=== PATIENT | female | born 1965 | race Caucasian/White ===

== ENCOUNTER → 2023-10-22 07:59 | Outpatient (REF) | payer OTHER, SELFPAY | LOC: WDC 07:59 | PROVIDERS: ATTENDING PHYSICIAN Surgery; FAMILY PHYSICIAN Internal Medicine | DX: R92.8 Other abnormal and inconclusive findings on diagnostic imaging of breast (principal) | CPT/HCPCS: 76642 ==

== ENCOUNTER → 2023-11-25 08:03 | Outpatient (REF) | payer OTHER, SELFPAY | LOC: WDC 08:03 | PROVIDERS: ATTENDING PHYSICIAN Surgery; FAMILY PHYSICIAN Family Medicine | DX: Z12.31 Encounter for screening mammogram for malignant neoplasm of breast (principal) | CPT/HCPCS: 77063; 77067 ==

== ENCOUNTER 2024-02-12 19:48 | Inpatient (IN) | payer OTHER, SELFPAY ==
[2024-02-12 13:07] VITALS: BP 128/81
[2024-02-12 13:22] LABS: % Basophils 0.4 % (0-2); % Eosinophils 0.4 % (0-6); % Immature Granulocytes 0.2 % (0-0.5); % Lymphocytes 15.4 % (20.5-51.1); % Monocytes 6.3 % (1.7-9.3); % Neutrophils 77.3 % (42.2-75.2); Absolute Basophils 0.1 10^3/uL (0-0.2); Absolute Eosinophils 0.1 10^3/uL (0-0.7); Absolute Lymphocytes 1.9 10^3/uL (1.2-3.4); Absolute Monocytes 0.8 10^3/uL (0.1-0.6); Absolute Neutrophils 9.3 10^3/uL (1.4-6.5); Hematocrit 37.2 % (37.0-47.0); Hemoglobin 12.7 g/dL (12.0-16.0); Mean Corp Hgb Conc. 34.1 g/dL (33.0-37.0); Mean Corpuscular Hgb 30.5 pg (27.0-31.0); Mean Corpuscular Volume 89.4 fL (81.0-99.0); Mean Platelet Volume 9.7 fL (7.4-10.4); Nucleated Red Blood Cells % 0 %; Platelet Count 225 10^3/uL (130-400); Red Blood Cell Count 4.16 10^6/uL (4.20-5.40); Red Cell Dist. Width 12.6 % (11.5-14.5)
[2024-02-12 13:41] LABS: ALT (SGPT) 36 U/L (0-35); AST (SGOT) 34 U/L (14-36); Albumin 4.2 g/dl (3.5-5.0); Alkaline Phosphatase 72 U/L (38-126); Blood Urea Nitrogen 12 mg/dl (7-17); Calcium 9.5 mg/dl (8.4-10.2); Carbon Dioxide 27 mmol/L (22-30); Chloride 102 mmol/L (98-107); Glucose 95 mg/dl (70-99); Lipase 69 U/L (23-300); Potassium 4.1 mmol/L (3.5-5.1); Sodium 135 mmol/L (135-145); Total Bilirubin 0.9 mg/dl (0.2-1.3); eGFR > 60.00
--- NOTE | 2024-02-12 15:34 | ED.GENMED ---
History of Present Illness
General
Chief Complaint: Abdominal Pain
Source: patient
Exam Limitations: none
Time Seen by Provider: 02/12/24 15:14
Nursing documentation reviewed up to this point in time: agreed with
History of Present Illness
History of Present Illness:
Patient is a 58 year old female presenting with 3 days of lower abdominal pain. Patient states pain initially started on Friday afternoon and is mostly located in the left lower quadrant of her abdomen. She has some pain just inferior to her
umbilicus. She does report a low-grade temp of 100.1 a few nights ago and mild nausea. She has also had a few episodes of diarrhea. Patient denies any vomiting or constipation. Patient denies any chest pain, shortness of breath. No urinary
symptoms.
Patient does believe that she has a history of possible diverticulitis. Although she does not believe she has ever had diagnostic CT imaging performed.
No history of abdominal surgeries.
Past History
Past History
ED Past Medical History: None
ED Past Surgical History: None
Social History
Tobacco: Non-smoker
Personal:
Living: with family
Employment: Not employed
Review of Systems
Review of Systems
Allergies reviewed?: Yes
All Other Systems: ROS reviewed and negative except as documented in HPI and ROS
Phy Exam
Physical Exam
Physical Exam:
Vitals: Vital signs stable. Afebrile
General: Patient is well appearing, no acute distress. Nontoxic appearing
Skin: Warm and dry, no rashes or lesions
Head: Normocephalic, atraumatic
Eyes: Sclera nonicteric. EOMs intact. No nystagmus.
Throat: Protecting airway
Neck: Normal ROM, no cervical spine tenderness, no meningismus
Cardiac: Regular rate and rhythm, no murmurs.
Pulm: Normal respiratory effort, no wheezes, rales, rhonchi heard on exam.
Abdomen: Abdomen soft. Moderate abdominal tenderness in left lower quadrant and suprapubic region. Nondistended. No CVA tenderness
Extremities: No evidence of cyanosis or edema. Great distal pulses
Neuro: AAOx3. CN II-XII intact. No focal neurologic deficits.
Psychiatric: Normal affect.
Course
Orders/Labs/Results
Orders:
Orders
02/12/24 13:13
Complete Blood Count/With Diff Urgent
Comprehensive Metabolic Panel Urgent
Lipase Urgent
02/12/24 15:25
0.9% Sodium Chloride 1000 ml [Nss] 1,000 ml IV BOLUS
Ketorolac [Toradol] 15 mg IV NOW STA
02/12/24 15:26
CT Abd/pelvis W Iv Cont Urgent
Comment: hx diverticulitis and ovarian cysts
Reason For Exam: LLQ abdominal pain
Urinalysis Reflex To Culture Urgent
02/12/24 18:47
Piperacillin/Tazo 3.375 Gram [Zosyn] 3.375 gram in 50 ml IV NOW
Abnormal Lab Results
02/12/24
13:13
WBC 12.0 H 10^3/uL
(4.8-10.8)
RBC 4.16 L 10^6/uL
(4.20-5.40)
Absolute Neuts (auto) 9.3 H 10^3/uL
(1.4-6.5)
Absolute Monos (auto) 0.8 H 10^3/uL
(0.1-0.6)
Neutrophils % 77.3 H %
(42.2-75.2)
Lymphocytes % 15.4 L %
(20.5-51.1)
ALT 36 H U/L
(0-35)
02/12/24 13:13
02/12/24 13:13
Vital Signs
Initial and Last Documented VS:
Initial Vital Signs
Temp Pulse Resp BP Pulse Ox
98.4 F 105 16 128/81 97
02/12/24 13:07 02/12/24 13:07 02/12/24 13:07 02/12/24 13:07 02/12/24 13:07
Last Documented Vital Signs
Temp Pulse Resp BP Pulse Ox
98.4 F 105 16 128/81 97
02/12/24 13:07 02/12/24 13:07 02/12/24 13:07 02/12/24 13:07 02/12/24 13:07
MDM/Problems Addressed
Differential Diagnosis Includes:
Not limited to: Diverticulitis, colitis, appendicitis, kidney stone, UTI
MDM/Problems Addressed:
58-year-old female presenting with 3 days of left lower quadrant abdominal pain with mild associated nausea and diarrhea. Low-grade fevers at home. Possible history of prior diverticulitis although never required treatment. Patient mildly
tachycardic on arrival otherwise vital signs are stable. She is afebrile. Physical exam as above. Patient well-appearing, in no apparent distress. Patient is nontoxic-appearing. Abdomen is soft. Moderate tenderness left lower quadrant without
rebound tenderness or guarding. Abdomen nondistended. Patient perfusing well. Labs are initiated in triage show a mild leukocytosis of 12. Otherwise no clinically significant abnormalities. Patient was given a liter of fluids and [address] scan was obtained which showed acute diverticulitis with questionable developing small abscess. Findings were discussed with colorectal surgeon, Dr. Dilip Bustillo who reviewed images. Given patient is mildly tachycardic, with mild
leukocytosis, and possible developing abscess he recommended patient be admitted for IV antibiotics. Did discuss with patient who is agreeable to admission. Started patient on Zosyn. Patient admitted to hospitalist service.
Chronic conditions affecting care:
History of diverticulitis
Acute Exacerbation and/or Progression of Chronic Illness:
Acute diverticulitis
*Radiology
Radiology exam reviewed: preliminary read by ED provider and radiology read reviewed
*Pulse Oximetry
Patient hypoxic: no
*EKG
Interpreted by ED Provider?: NA
*Aircraft Worker Interpretation
Rate: Aircraft Worker- N/A
*Critical Care Note
Total Time (30-74mins, 75-104mins- exclusive of procedures): Not Applicable
Patient Management
Discussion with other providers: Hospitalist and Sales Representative Sales Manager
Escalation/DeEscalation of care consider admission/obs:
Admission for IV antibiotics, clear liquid diet
ED Attending Note
-
Portions of this chart may have been created with voice recognition software.� Occasional wrong word or��sound alike� substitutions may have occurred due to the inherent limitations of voice recognition software.
Discharge Plan
Departure
Patient Disposition: Admit
Date of Disposition: 02/12/24
Time of Disposition: 18:47
Presentation/result/management discussed w/ accepting MD/DO: Hospitalist
Discharge Problem:
Acute diverticulitis
Prescriptions:
No Action
multivitamin [Multi-Day] 1 EACH tablet
1 ea PO DAILY
prednisone 10 MG tablet
10 mg PO DAILY Qty: 6 0RF
albuterol sulfate 1 PUFF HFA aerosol inhaler
1 puff inhalation R Q4HPRN PRN (Reason: cough, sob) Qty: 1 0RF
amoxicillin-pot clavulanate 1 TABLET tablet
1 tab PO Q12 Qty: 13 0RF
famotidine 20 MG tablet
20 mg PO BID Qty: 28 0RF
Rx Instructions:
Take 20 mg twice a day for 14 days
ascorbic acid (vitamin C) [Vitamin C] 500 MG tablet
1,000 mg PO BID Qty: 56 0RF
Rx Instructions:
Take 1,000 mg twice a day for 14 days
aspirin 81 MG tablet,chewable
81 mg PO DAILY Qty: 14 0RF
Rx Instructions:
Take 81 mg daily for 14 days
zinc sulfate 220 MG capsule
220 mg PO DAILY Qty: 14 0RF
Rx Instructions:
Take 220 mg daily for 14 days
cholecalciferol (vitamin D3) 1,000 UNITS tablet
2,000 units PO DAILY Qty: 28 0RF
Rx Instructions:
Take 2,000 units daily for 14 days
melatonin 5 MG tablet
5 mg PO HS Qty: 14 0RF
Rx Instructions:
Take 5 mg daily at bedtime for 14 days
Referrals:
Donis Silveira DO [Family Provider] -
Interventions
Interventions:
*Risk Screen - Suicide Last Done: 02/12/24 13:07
*General Assessment Last Done: 02/12/24 13:07
*Neglect/Abuse Screening Last Done: 02/12/24 13:07
FV-Ybgmxy-Bbygtswavs Assessment Last Done: 02/12/24 16:34
Discharge Date and Time
Print Language: MARSHALLESE
[2024-02-12] MEDS: TORADOL 15 MG IV (15:38)
[2024-02-12] MEDS: NSS 1000 IV ×2 (15:44→21:20)
[2024-02-12] MEDS: ZOSYN 50 IV (19:10)
[2024-02-12 19:15] VITALS: BP 121/85
--- NOTE | 2024-02-12 19:37 | HPS.HSE ---
Addendum entered and electronically signed by Caleb Rodarte MD 02/12/24 19:40:
Colorectal consulted.
Original Note:
Family Physician
-
Family Physician: Donis Silveira
Chief Complaint
-
abdominal pain
History of Present Illness
58-year-old female no past medical history presenting with 3 days of lower abdominal pain. Pain is located the left lower quadrant. She had low-grade temperature 100.1 few nights ago and mild nausea. Also a few episodes of loose stools. Denies
any vomiting or constipation. Denies any chest pain shortness of breath. She does have lower abdominal pressure when she urinates.
Denies smoking. Drinks alcohol occasionally.
Medical History
Past Medical History
Past Medical History: Reports None
Past Surgical History: Reports None
Social History
Tobacco: Non-smoker
Alcohol: Occasional
Drug: None
Family History
Family History: Not pertinent
Allergies / Home Medications
Allergies reflects when Allergies were last updated in [email or web address].
Home Medications with original date entered in [email or web address]
Allergy/Medication List:
Allergies
Allergy/AdvReac Type Severity Reaction Status Date / Time
NKA - No Known Allergies Allergy Unknown Uncoded 02/12/24 13:07
Home Medications
fluticasone propionate 50 mcg/actuation nasal spray,suspension 1 spray intranasal BID 02/12/24
magnesium glycinate 100 mg (as glycinate) tablet 100 mg PO HS 02/12/24
therapeutic multivitamin 1 tab PO DAILY 02/12/24
Review of Systems
-
History Source: Patient
A 12 point ROS was completed and negative except as noted: Yes
Constitutional: Reports No Symptoms
EENT: Reports No Symptoms
Respiratory: Reports No Symptoms
Cardiac: Reports No Symptoms
Abdomen/GI: Reports See HPI
: Reports No Symptoms
Musculoskeletal: Reports No Symptoms
Skin: Reports No Symptoms
Neurological: Reports No Symptoms
Endocrine: Reports No Symptoms
Hematologic/Lymphatic: Reports No Symptoms
Psych: Reports No Symptoms
Physical Exam
Vital Signs
Vital Signs
Temp Pulse Resp BP Pulse Ox
98.4 F 105 16 128/81 99
02/12/24 13:07 02/12/24 13:07 02/12/24 13:07 02/12/24 13:07 02/12/24 19:15
Physical Exam
General: Well Developed, Well Nourished and No Apparent Distress
HEENT: NormoCephalic, Moist mucous membranes and Atraumatic
Respiratory: Clear
Cardiac: S1/S2 and Regular Rhythm; No Murmur or Rub
GI: Soft, Non Distended, Normal Bowel Sounds and Tender (LLQ ); No Organomegaly
Rectal: Deferred by Provider
Musculoskeletal: No Clubbing, No Cyanosis and No Edema
Skin: No Rash
Neuro: Nonfocal/grossly intact
Laboratory Results
-
02/12/24 13:13
02/12/24 13:13
Laboratory Results
Total Bilirubin 0.9 mg/dl (0.2-1.3) 02/12/24 13:13
AST 34 U/L (14-36) 02/12/24 13:13
ALT 36 U/L (0-35) H 02/12/24 13:13
Alkaline Phosphatase 72 U/L (38-126) 02/12/24 13:13
Lipase 69 U/L (23-300) 02/12/24 13:13
Data Reviewed
-
Lab Data: Labs Reviewed by me
Old Records: Reviewed
Impression/Plan
-
IMPRESSION:
PLAN:
# Sepsis (leukocytosis, tachycardia ) secondary to acute diverticulitis with possible small developing abscess
-N.p.o.
-IV fluids
-Zosyn
-Check urinalysis
# Possible UTI
-Check urinalysis
-Zosyn
Full code
DVT prophylaxis�heparin
N.p.o.
[2024-02-12 20:03] LABS: Urine Albumin Trace (Neg - Trace); Urine Bilirubin Negative (Negative); Urine Character Clear (Clear); Urine Color Yellow; Urine Glucose Negative (Negative); Urine Ketone 3+ (Negative); Urine Leukocyte Trace (Negative); Urine Nitrite Negative (Negative); Urine Occult Blood 1+ (Negative); Urine Specific Gravity 1.015 (<1.030); Urine Urobilinogen 2+ (Neg - 1+)
[2024-02-12 20:13] LABS: Urine Bacteria Few (Negative); Urine Red Blood Cell 0-2 /HPF (0-2)
[2024-02-12 20:50] VITALS: BP 133/76; BMI 24.1
--- NOTE | 2024-02-12 21:00 | PTCARENOTE ---
Pt arrived to room 434-02. Pt ambulated from stretcher to bed. Pt AAOx3, VSS. Pt c/o /10 abdominal pain in LLQ + lower middle abdomen. Pt oriented to room, call gardiner placed within reach.
[2024-02-12] MEDS: HEPARIN 5000 UNITS SC (21:19)
[2024-02-12] MEDS: MAG-TAB SR 84 MG PO (21:20)
[2024-02-12 23:04] VITALS: BP 130/69
[2024-02-13] MEDS: ZOSYN 50 IV ×4 (01:56→21:17)
[2024-02-13 07:35] VITALS: BP 138/78
--- NOTE | 2024-02-13 08:09 | CON.CRS ---
Consultation
-
Performing Provider: Dilip Bustillo MD
Reason for Consultation: Diverticulitis
Medical History
-
History of Present Illness:
Patient is a 58-year-old female with PMH of diverticulosis, possible diverticulitis (she has had episodes of left-sided abdominal pain, was never admitted or had a CT scan for these episodes) who presents for 3 days of severe lower abdominal pain.
She denies any nausea or vomiting or dysuria. She continues to have BMs, but they have become smaller and softer, no blood. She presented to the ED yesterday. Her WBC was 12.[address] was done that showed mild diverticulitis with associated
thickening of a couple loops of small bowel and with a question of a 1.5 cm abscess versus inflamed diverticulum adjacent to the bladder. Her HR was 105, afebrile and was just mildly tender. She was admitted for bowel rest and IV antibiotics. Her
last colonoscopy was in [address] Youssef, which found pandiverticulosis and a small transverse polyp that was benign.
Past Medical History
Past Medical History: None (As above)
Past Surgical History: Other (Denies)
Social History
Tobacco: Non-Smoker
Alcohol: Occasional
Drug: None
Family History
Family History: Other (Maternal grandfather with colon cancer in his 80s, nephew with diverticulosis)
Allergies / Home Medications
Allergy/AdvReac Type Severity Reaction Status Date / Time
No Known Allergies Allergy Unverified 02/12/24 20:55
�Medication �Instructions �Recorded �Confirmed �Type
fluticasone propionate 50 1 spray intranasal BID 02/12/24 02/12/24 History
mcg/actuation nasal
spray,suspension
magnesium glycinate 100 mg (as 100 mg PO HS 02/12/24 02/12/24 History
glycinate) tablet
therapeutic multivitamin 1 tab PO DAILY 02/12/24 02/12/24 History
Review of Systems
-
All other systems: Negative unless noted
A 10 point review of systems was completed, and was negative except as per HPI.
Physical Exam
Vital Signs
Temp 98.2 F 02/13/24 07:35
Pulse 85 02/13/24 07:35
Resp Rate 18 02/13/24 07:35
Blood pressure 138/78 02/13/24 07:35
SaO2 96 02/13/24 07:35
02/12/24 02/13/24 02/14/24
06:59 06:59 06:59
Actual Weight 67.812 kg
Body Mass Index (BMI) 24.1
Lab Results / Allergies
WBC 12.0 10^3/uL (4.8-10.8) H 02/12/24 13:13
Hgb 12.7 g/dL (12.0-16.0) 02/12/24 13:13
Hct 37.2 % (37.0-47.0) 02/12/24 13:13
Plt Count 225 10^3/uL (130-400) 02/12/24 13:13
Abs Immat Gran (auto) 0.0 10^3/uL (0-0.05) 02/12/24 13:13
Neutrophils % 77.3 % (42.2-75.2) H 02/12/24 13:13
Allergy/AdvReac Type Severity Reaction Status Date / Time
No Known Allergies Allergy Unverified 02/12/24 20:55
Physical Exam
General: Well Developed, Well Nourished, No Apparent Distress and Comfortable
HEENT: Normocephalic and Atraumatic
GI: Soft, Non Distended and Tender (Mildly tender to palpation in the lower abdomen, most in the suprapubic area; no rebound or guarding)
Skin: Warm and Dry
Neuro: AO x 3
Data Reviewed
-
CT Scan: Image Personally Visualized and interpreted
Old Records: Reviewed (Colonoscopy and pathology report)
Assessment / Plan
-
58-year-old female with PMH of diverticulosis, possible diverticulitis (she has had episodes of left-sided abdominal pain, was never admitted or had a CT scan for these episodes) who presents for 3 days of severe lower abdominal pain. Her WBC was
12.[address] was done that showed mild diverticulitis with associated thickening of a couple loops of small bowel and with a question of a 1.5 cm abscess versus inflamed diverticulum adjacent to the bladder. Her HR was 105, afebrile and was just
mildly tender. Last colonoscopy was in [address] Youssef, which found pandiverticulosis and a small transverse polyp that was benign.
AFVSS
Labs pending
� Sigmoid diverticulitis with question of small abscess versus inflamed diverticulum, associated with nearby enteritis
�No surgical intervention currently indicated; continue nonoperative measures
�Explained the pathophysiology of uncomplicated versus complicated diverticulitis and the treatment options, including nonoperative versus operative management; explained the risks involved with operative management in the acute setting, including
but not limited to, the need for open surgery and possible ostomy; patient understood and agreed to nonoperative measures
� Okay for clears; if tolerating, okay for low residue this afternoon
� Continue IV Zosyn; recommend Augmentin on discharge for total of 7 days of antibiotics
�Continue pain control; recommend Tylenol and Toradol to minimize narcotics
� Encourage OOB/IS
� Appreciate hospitalist
Dispo - if tolerating low residue and wbc improved, okay for discharge as early as this afternoon, possibly tomorrow; recommend follow-up with me in 2 weeks
[2024-02-13] MEDS: NSS 1000 IV ×2 (09:10→16:06)
[2024-02-13] MEDS: THERAGRAN 1 TABLET PO (09:11)
[2024-02-13] MEDS: HEPARIN 5000 UNITS SC ×2 (09:11→21:17)
[2024-02-13 10:05] LABS: % Basophils 0.6 % (0-2); % Immature Granulocytes 0.4 % (0-0.5); % Lymphocytes 21.2 % (20.5-51.1); % Monocytes 8.2 % (1.7-9.3); % Neutrophils 68.6 % (42.2-75.2); Absolute Basophils 0.1 10^3/uL (0-0.2); Absolute Eosinophils 0.1 10^3/uL (0-0.7); Absolute Lymphocytes 1.6 10^3/uL (1.2-3.4); Absolute Monocytes 0.6 10^3/uL (0.1-0.6); Absolute Neutrophils 5.3 10^3/uL (1.4-6.5); Hematocrit 36.9 % (37.0-47.0); Hemoglobin 12.6 g/dL (12.0-16.0); Mean Corp Hgb Conc. 34.1 g/dL (33.0-37.0); Mean Corpuscular Hgb 31.2 pg (27.0-31.0); Mean Corpuscular Volume 91.3 fL (81.0-99.0); Mean Platelet Volume 10.5 fL (7.4-10.4); Nucleated Red Blood Cells % 0 %; Platelet Count 191 10^3/uL (130-400); Red Blood Cell Count 4.04 10^6/uL (4.20-5.40); Red Cell Dist. Width 12.2 % (11.5-14.5); White Blood Cell Count 7.7 10^3/uL (4.8-10.8)
--- NOTE | 2024-02-13 11:34 | W.PN.HOSP.TC ---
Today's Communication/Plan
-
Monitor vital signs
see plan
Continue with diet per colorectal
Pain control
Fluids
Antibiotics
Assessment / Plan
Assessment / Plan
General: Well Developed, Well Nourished and No Apparent Distress
HEENT: NormoCephalic, Moist mucous membranes and Atraumatic
Respiratory: Clear
Cardiac: S1/S2 and Regular Rhythm; No Murmur or Rub
GI: Soft, Non Distended, Normal Bowel Sounds and Tender (LLQ )
Musculoskeletal:No Edema
Neuro: Nonfocal/grossly intact
Sepsis (leukocytosis, tachycardia ) secondary to acute diverticulitis with possible small developing abscess
now on clears; LRD when able
patient is still currently tender on exam
-IV fluids
-Zosyn
CRS following
no UTI per UA
per CT thickening of the wall of the urinary bladder may be secondary to inflamed from the sigmoid colon
hx of diverticulosis
Full code
DVT prophylaxis�heparin
Anticipated Discharge: Within 24 hours
Subjective/Interval History
-
Date of Service: February 13, 2024
has abdominal pain
Objective Data
-
Labs:
Laboratory Results
02/13/24
08:24
WBC 7.7
Hgb 12.6
Hct 36.9 L
Plt Count 191
Sodium Pending
Potassium Pending
Chloride Pending
Carbon Dioxide Pending
BUN Pending
Creatinine Pending
Glucose Pending
Calcium Pending
Total Bilirubin Pending
AST Pending
ALT Pending
Alkaline Phosphatase Pending
Vital Signs:
Vital Signs
Temp Pulse Resp BP Pulse Ox
98.2 F 85 18 138/78 96
02/13/24 07:35 02/13/24 07:35 02/13/24 07:35 02/13/24 07:35 02/13/24 07:35
--- NOTE | 2024-02-13 13:01 | CM ---
development system efficiency manager reviewed patient's chart and met with patient and patient lives with her spouse and kids in a bilevel home patient is independent with adl's and ambulation, no dme, patient drives.
Pharmacy [facility]
PCP: Dr. Silveira
Plan; Home no needs when stable.
[2024-02-13 15:40] VITALS: BP 138/74
[2024-02-13 15:53] VITALS: BP 138/74
[2024-02-13 17:22] LABS: ALT (SGPT) 29 U/L (0-35); AST (SGOT) 33 U/L (14-36); Albumin 4.1 g/dl (3.5-5.0); Alkaline Phosphatase 75 U/L (38-126); Blood Urea Nitrogen 13 mg/dl (7-17); Calcium 8.9 mg/dl (8.4-10.2); Carbon Dioxide 18 mmol/L (22-30); Chloride 106 mmol/L (98-107); Estimated Creatinine Clearance 83 ml/min; Glucose 60 mg/dl (70-99); Potassium 4.5 mmol/L (3.5-5.1); Sodium 135 mmol/L (135-145); Total Protein 7.1 g/dl (6.3-8.2); eGFR > 60.00
[2024-02-13] MEDS: MAG-TAB SR 84 MG PO (21:17)
[2024-02-13 23:00] VITALS: BP 141/81
[2024-02-14] MEDS: ZOSYN 50 IV ×2 (02:03→08:15)
[2024-02-14] MEDS: NSS 1000 IV (04:05)
[2024-02-14 06:59] LABS: % Basophils 0.6 % (0-2); % Eosinophils 4.7 % (0-6); % Immature Granulocytes 0.4 % (0-0.5); % Lymphocytes 27.6 % (20.5-51.1); % Monocytes 11.1 % (1.7-9.3); % Neutrophils 55.6 % (42.2-75.2); Absolute Eosinophils 0.2 10^3/uL (0-0.7); Absolute Lymphocytes 1.3 10^3/uL (1.2-3.4); Absolute Monocytes 0.5 10^3/uL (0.1-0.6); Absolute Neutrophils 2.7 10^3/uL (1.4-6.5); Hematocrit 34.4 % (37.0-47.0); Hemoglobin 11.9 g/dL (12.0-16.0); Mean Corp Hgb Conc. 34.6 g/dL (33.0-37.0); Mean Corpuscular Hgb 31.1 pg (27.0-31.0); Mean Corpuscular Volume 89.8 fL (81.0-99.0); Mean Platelet Volume 10.1 fL (7.4-10.4); Nucleated Red Blood Cells % 0 %; Platelet Count 193 10^3/uL (130-400); Red Blood Cell Count 3.83 10^6/uL (4.20-5.40); Red Cell Dist. Width 12.1 % (11.5-14.5); White Blood Cell Count 4.9 10^3/uL (4.8-10.8)
[2024-02-14 07:00] VITALS: BP 139/74
[2024-02-14 07:17] LABS: Blood Urea Nitrogen 11 mg/dl (7-17); Calcium 8.9 mg/dl (8.4-10.2); Carbon Dioxide 24 mmol/L (22-30); Chloride 106 mmol/L (98-107); Estimated Creatinine Clearance 83 ml/min; Glucose 77 mg/dl (70-99); Sodium 138 mmol/L (135-145); eGFR > 60.00
[2024-02-14] MEDS: HEPARIN 5000 UNITS SC (08:14)
[2024-02-14] MEDS: THERAGRAN 1 TABLET PO (08:14)
--- NOTE | 2024-02-14 11:31 | W.PN.HOSP.TC ---
Today's Communication/Plan
-
Discharge
Assessment / Plan
Assessment / Plan
Gen-AAOx3, NAD
HEENT-NC, AT, anicteric, clear oral mm
Neck-supple
CV-reg, no M, +S1/S2
Lungs-clear B/L
Abd-soft, nondistended, mild left lower quadrant tenderness, no guarding
Ext-no edema
Musculoskeletal-no cyanosis, clubbing
Skin-warm and dry
Neuro-grossly non-focal
Psych-calm, cooperative
Sepsis - secondary to acute sigmoid diverticulitis with possible small developing abscess. Clinically improving. Leukocytosis resolved. Tolerating low residue diet. Change to Augmentin and discharge today. Outpatient follow-up with PCP and
colorectal surgery.
hx of diverticulosis
Full code
Dispo -medically stable for discharge home on oral antibiotics. Outpatient follow-up. Updated at the bedside.
32 minutes spent in discharge process.
Anticipated Discharge: Today
Subjective/Interval History
-
Date of Service: February 14, 2024
Patient seen and examined. Overall feeling better. Tolerating diet. No complaints.
Objective Data
-
Labs:
Laboratory Results
02/14/24
06:05
WBC 4.9
Hgb 11.9 L
Hct 34.4 L
Plt Count 193
Sodium 138
Potassium 4.0
Chloride 106
Carbon Dioxide 24
BUN 11
Creatinine 0.7
Glucose 77
Calcium 8.9
Vital Signs:
Vital Signs
Temp Pulse Resp BP Pulse Ox
97.8 F 67 16 139/74 97
02/14/24 07:00 02/14/24 07:00 02/14/24 07:00 02/14/24 07:00 02/14/24 07:00
I&O
02/13/24 02/14/24 02/15/24
06:59 06:59 06:59
Intake Total 420 / 420
Balance 420 / 420
Review of Systems
-
History Source: Patient
All other systems: Reviewed and negative
--- NOTE | 2024-02-14 11:35 | W.DS.TRANS ---
DC Summary - Reverberatory Furnace Operator
-
Discharge Instructions:
Discharge Diagnosis/Procedures Sigmoid diverticulitis
Diet Low Residue
Additional Diets Continue low residue/low fiber diet for 7 days,
then slowly re-introduce fiber
Activity No restrictions,No strenuous activity
Driving Restrictions Ok to drive if pain controlled without narcotics
Bathing Restrictions None
Instructions:
Stand-Alone Forms:
Changes to Home Medications: No
Discharge Medications:
DC Medications w/original date entered in [employer]
fluticasone propionate 50 mcg/actuation nasal spray,suspension 1 spray intranasal BID 02/12/24
magnesium glycinate 100 mg (as glycinate) tablet 100 mg PO HS 02/12/24
therapeutic multivitamin 1 tab PO DAILY 02/12/24
amoxicillin 875 mg-potassium clavulanate 125 mg tablet 1 tab PO BID #12 tabs 02/14/24
Home Medication Changes
Pending Results: No
[2024-02-14 12:29] VITALS: BP 154/82
--- NOTE | 2024-02-14 12:42 | CM ---
Discharged to home; no needs; had transport home
--- NOTE | 2024-02-14 12:57 | W.PN.CRS1 ---
Addendum entered and electronically signed by Donis Cerda MD 02/14/24 14:50:
I saw and examined the patient.
The VICE PRESIDENT [employer]'s note was reviewed and I agree with the note.
Comment:
Seen earlier with VICE PRESIDENT [employer].
Minimal pain. Tolerated diet. Having loose BMs.
Vitals and labs ok.
Abdomen minimally tender.
Ok with discharge from surgical perspective.
Original Note:
Today's Communication / Plan
-
dispo planning
Assessment/Plan
-
58 yo female presenting with diverticulitis with interim improvement on IV ABX. Diet able to be advanced and well tolerated
--C/W PO abx upon d/c
--LRD for the next 2 weeks until resolution of acute infection
--OP follow up with CRS discussed
Ok for discharge from surgical standpoint
Subjective Data
Subjective Data
Date of Service: February 14, 2024
Late entry: patient seen and examined at bedside with Dr. Cerda at approximately 1015. She denies pain. Tolerating diet. OOB to chair. Denies n/v. Tolerating diet thus far. Passing some loose stools/flatus.
Objective Data
-
Vital Signs
Temp Pulse Resp BP Pulse Ox
98.6 F 76 16 154/82 98
02/14/24 12:29 02/14/24 12:29 02/14/24 12:29 02/14/24 12:29 02/14/24 12:29
Intake & Output
02/13/24 02/14/24 02/15/24
06:59 06:59 06:59
Intake Total 420 / 420
Balance 420 / 420
Intake:
Oral fluids 420 / 420
Other:
Number of approximated MODERATE 2 1
amounts of urine
Lab Results
02/14/24 06:05
02/14/24 06:05
Physical Exam
-
General: No Acute Distress
Abdomen: Soft, Non Distended and Tender (mild tenderness to LLQ/suprapubic area)
== END 2024-02-14 12:40 | disposition home or self-care (01) | DRG 872 ==
LOC: 4 WEST ACU 19:48
PROVIDERS: Internal Medicine; Physician Assistant; ADMITTING PHYSICIAN Hospitalist; ATTENDING PHYSICIAN Hospitalist; CONSULT PHYSICIAN Surgery; EMERGENCY PHYSICIAN Student in an Organized Health Care Education/Training Program; FAMILY PHYSICIAN Family Medicine
DX: A41.9 Sepsis, unspecified organism (principal); K57.20 Diverticulitis of large intestine with perforation and abscess without bleeding; K52.9 Noninfective gastroenteritis and colitis, unspecified; Z79.899 Other long term (current) drug therapy; Z87.19 Personal history of other diseases of the digestive system
CPT/HCPCS: 74177; 80048; 80053; 81003; 81015; 83690; 85025; 96361; 96374; 96375; 99285; Q9967

== ENCOUNTER → 2024-04-22 14:46 | Outpatient (REF) | payer OTHER, SELFPAY | LOC: WDC 14:46 | PROVIDERS: ATTENDING PHYSICIAN Surgery; FAMILY PHYSICIAN Family Medicine | DX: R92.8 Other abnormal and inconclusive findings on diagnostic imaging of breast (principal) | CPT/HCPCS: 76642 ==

== ENCOUNTER → 2024-04-28 12:46 | Outpatient (REF) | payer OTHER, SELFPAY | LOC: HWRAD 12:46 | PROVIDERS: ATTENDING PHYSICIAN Obstetrics & Gynecology Gynecology; FAMILY PHYSICIAN Family Medicine | DX: D25.9 Leiomyoma of uterus, unspecified (principal) | CPT/HCPCS: 76830; 76856 ==

== ENCOUNTER → 2024-07-27 08:55 | Outpatient (REF) | payer OTHER, SELFPAY | LOC: WDC 08:55 | PROVIDERS: ATTENDING PHYSICIAN Surgery; FAMILY PHYSICIAN Family Medicine | DX: R92.2 Inconclusive mammogram (principal); R92.8 Other abnormal and inconclusive findings on diagnostic imaging of breast | CPT/HCPCS: 76641 ==

== ENCOUNTER → 2024-11-26 07:52 | Outpatient (REF) | payer OTHER, SELFPAY | LOC: WDC 07:52 | PROVIDERS: ATTENDING PHYSICIAN Obstetrics & Gynecology Gynecology; FAMILY PHYSICIAN Family Medicine; REFERRING PHYSICIAN Surgery | DX: Z12.31 Encounter for screening mammogram for malignant neoplasm of breast (principal); R92.8 Other abnormal and inconclusive findings on diagnostic imaging of breast | CPT/HCPCS: 76642; 77063; 77067 ==